=== PATIENT | male | born 1975 | race Caucasian/White ===

== ENCOUNTER 2017-01-08 12:32 | Emergency (ER) | payer OTHER ==
[~2017-01-08] VITALS: Ht 167.6 cm; Wt 106.3 kg
[2017-01-08 12:53] VITALS: TEMP 36.9; Ht 167.6 cm; Wt 106.3 kg
[2017-01-08] MEDS ORDERED: DOXY50CA26 PO (14:00)
[2017-01-08] MEDS ORDERED: FLUO0.0566 TOP (14:00)
[2017-01-08] MEDS ORDERED: HYDR-3419 PO (14:00)
[2017-01-08] MEDS ORDERED: HYDROCODONE/ACETAMOPHEN 5/325MG TAB PO STA (14:42)
[2017-01-08] MEDS ORDERED: ACETAMINOPHEN 325 MG TAB PO STA (14:42)
[2017-01-08] MEDS ORDERED: IBUPROFEN 200 MG TAB PO STA (14:42)
[2017-01-08] MEDS ORDERED: TRAMADOL HCL 50 MG TAB PO STA (14:42)
--- NOTE | 2017-01-08 14:53 | EMERGENCY ROOM VISIT NOTE ---
History Report prepared by Harshad: Makenna Dumont Under the Supervision of: Dr. Jose Vázquez M.D. First contact with patient: 13:51 Chief Complaint: BACK PAIN Stated Complaint: BACK AND HIP PAIN History of Present Illness The patient is a 41 year old male who presents to the Emergency Room with complaints of an episode of back pain starting 8 days ago. The patient states that he has chronic back pain from an accident 8 years ago. He states that the pain feels like past flare ups. He notes it is at the base and middle of his back. He states that it is shooting into his hip. The patient states that he sees a chiropractor, sees physical therapist, and takes Vicodin. He states that he took the Vicodin with no relief. He states that standing worsens his symptoms. The patient denies fevers, a history of cancer, incontinence, recent trauma, and urinary symptoms. Source of History: patient Onset: 8 days ago Position: back Quality: other (similar to previous flare ups) Timing: other (episode) Modifying Factors (Worsening): other (standing) Associated Symptoms: No fevers, No urinary symptoms Note: The patient complains of hip pain. The patient denies a history of cancer, incontinence, and recent trauma. Review of Systems See HPI for pertinent positives and negatives. A total of ten systems were reviewed and were otherwise negative. Past Medical & Surgical Medical Problems: (1) Chronic back pain Surgical Problems: (1) H/O wisdom tooth extraction Family History No pertinent family history Social History Smoking Status: Never Smoker Alcohol Use: none Drug Use: none Marital Status: Housing Status: lives with significant other Current/Historical Medications Scheduled Diazepam (Valium), 5 MG PO TID Doxycycline (Monohydrate) (Doxycycline), 1 CAP PO DAILY Fluocinonide (Fluocinonide), 1 APPLN TOP DAILY Scheduled PRN Hydrocodon/Acetaminophen 5MG/300MG (Vicodin (5MG/300MG)), 1 TAB PO Q4H PRN for Pain Tramadol (Ultram), 1 TAB PO BID PRN for Pain Allergies Coded Allergies: CI Pigment Blue 63 (Unverified Allergy, Intermediate, INCREASED HEART RATE , 01/08/17) Duloxetine (Unverified Allergy, Intermediate, INCREASED HEART RATE, 01/08/17 ) Ramipril (Unverified Allergy, Intermediate, INCREASED HEART RATE, 01/08/17) Physical Exam Vital Signs Date Time Temp Pulse Resp B/P (MAP) Pulse Ox O2 Delivery O2 Flow Rate FiO2 01/08/17 17:38 72 16 134/72 98 01/08/17 16:50 62 18 136/65 98 Room Air 01/08/17 15:50 58 20 137/72 98 Room Air 01/08/17 14:57 62 20 145/72 98 Room Air 01/08/17 12:53 36.9 66 20 98 Room Air Physical Exam GENERAL: Awake, alert, well-appearing, NAD HENT: Normocephalic, atraumatic. EYES: Normal conjunctiva. Sclera non-icteric. NECK: Supple. No nuchal rigidity. FROM. RESPIRATORY: CTAB, no rhonchi, wheezing, crackles CARDIAC: RRR, no MRG ABDOMEN: Soft, NTND, BS+ MSK: No chest wall TTP, no LE edema. Mild left sided SI joint ttp, tenderness with internal and external rotation of left leg and leg raise, Favre test positive, NV intact, SP/DP/TIB intact sensory and motor. NEURO: GCS 15, CN 2-12 intact, moves all 4s on command SKIN: No rash or jaundice noted. Medical Decision & Procedures ER Provider Diagnostic Interpretation: Radiology results as stated below per my review and radiologist interpretation: LUMBAR SPINE 2 OR 3 VIEWS HISTORY: 41 years-old Male prior L4/L5 frx w/ degenerative change COMPARISON: Pelvic radiographs of same day TECHNIQUE: 3 views of the lumbar spine FINDINGS: 5 nonrib lumbar-type vertebral segments are present. There is a probable phlebolith of the right hemipelvis. 3 mm radiodensity within the region of the inferior pole right kidney may reflect calculus or colonic debris. No acute fracture or dislocation. There is straightening of the normal lumbar lordosis. No significant degenerative changes. IMPRESSION: 1. No fracture or significant degenerative changes. 2. Straightening of the normal lumbar lordosis may be related to positioning or muscle spasm. 3. 3 mm radiodensity of the right upper abdomen may reflect renal calculus or colonic debris. The above report was generated using voice recognition software. It may contain grammatical, syntax or spelling errors. Electronically signed by: Jeff Pittman M.D. 01/08/2017 4:35 PM Dictated Date/Time: 01/08/2017 4:33 PM LEFT PELVIS/UNILATERAL HIP 2-3VIEWS CLINICAL HISTORY: prior frp trauma. Pain. COMPARISON: None. DISCUSSION: The bones and joint spaces appear intact. There is no evidence of fracture, dislocation or bony disease. There is no evidence for soft tissue swelling. IMPRESSION: Negative study. The above report was generated using voice recognition software. It may contain grammatical, syntax or spelling errors. Electronically signed by: Hebert Frazier M.D. 01/08/2017 4:31 PM Dictated Date/Time: 01/08/2017 4:30 PM Medications Administered Medications (Trade) Dose Ordered Sig/Anthony Route Start Time Stop Time Status Last Admin Dose Admin Acetaminophen/ Hydrocodone Bitart ([place] 5/325 Tab) 1 tab NOW STAT PO 01/08/17 14:42 01/08/17 14:44 DC 01/08/17 14:57 1 TAB Tramadol HCl (Ultram Tab) 50 mg NOW STAT PO 01/08/17 14:42 01/08/17 14:44 DC 01/08/17 14:56 50 MG Ibuprofen (Advil Tab) 400 mg NOW STAT PO 01/08/17 14:42 01/08/17 14:44 DC 01/08/17 14:55 400 MG Acetaminophen (Tylenol Tab) 650 mg NOW STAT PO 01/08/17 14:42 01/08/17 14:44 DC 01/08/17 14:57 650 MG ED Course 1423: The patient was evaluated in room B8. A complete history and physical exam was performed. 1442: Ordered Tylenol Tab 650 mg PO, Advil Tab 400 mg PO, Ultram Tab 50 mg PO, [place] 5/325 Tab 1 tab PO. 1520: I reevaluated the patient and his pain is better. 1649: I reevaluated the patient. Discussed results and discharge instructions: He verbalized understanding and agreement. The patient is ready for discharge. Medical Decision The patient is a 41 year old male who presents to the Emergency Room with complaints of an episode of back pain starting 8 days ago. The patient has a history of chronic back pain. Differential diagnoses include SI pain, arthritis, degenerative joint disease, sciatica. Given the patient's signs and symptoms most likely related to chronic degenerative disease from his prior accident. Patient had no high risk signs which included no IV drug abuse, steroid use, immunosuppression, fevers, chills , weight loss, bowel or bladder incontinence, lower extremity numbness or tingling, or saddle anesthesia. Patient was given medications which she said mildly improved his pain. Patient had films of his lumbar spine as well as his pelvis which didn't show any acute changes that would require any sort of medical or surgical management. Patient was informed of the findings was given additional medications to help pain. Patient was also informed to not take the Valium with his Percocets. Patient was told to take his medications as prescribed. Patient was told to take too much Motrin and on for more than 2 consecutive days and this can cause stomach and/or kidney problems. Patient agree with plan of care was to follow-up with his physical therapist as well as chiropractor tomorrow. Patient was also in the next week. Patient was in [place], discharge, return precautions. Patient agreed with plan of care and was discharged home. Impression Primary Impression: Chronic back pain Additional Impression: Sacroiliac joint pain Scribe Attestation The scribe's documentation has been prepared under my direction and personally reviewed by me in its entirety. I confirm that the note above accurately reflects all work, treatment, procedures, and medical decision making performed by me. Departure Information Dispostion Home / Self-Care Prescriptions Diazepam (VALIUM) 5 Mg Tab 5 MG PO TID for Pain, #14 TAB Prov: Jose Vázquez M.D. 01/08/17 Tramadol (Ultram) 50 Mg Tab 1 TAB PO BID Y for Pain for 30 Days, #60 TAB Prov: Jose Vázquez M.D. 01/08/17 Referrals No Doctor, Assigned (PCP) [facility] Forms HOME CARE DOCUMENTATION FORM, IMPORTANT VISIT INFORMATION Patient Instructions Back Pain - [facility], [facility] Additional Instructions Please keep her follow-up appointments as scheduled. Please return to the emergency department if you worsening or recurrent symptoms not amenable to treatment. Furthermore, please return to the ER if you have any bowel or bladder incontinence or if you are unable to feel perineal or genital area. Immediate take Motrin 800 mg every 6 hours as needed for pain for no more than 2 days. He may take with food. He may take Tylenol 1000 mg every 6 hours as needed for pain. Please do not take more than 4000 mg in any given day. You have been prescribed Valium as a muscle relaxant. As we discussed earlier please do not take the Valium as well as her already prescribed Percocet. This can cause sedation which may cause further problems. Work Instructions Return To Work: 1 day Problem Qualifiers
--- NOTE | 2017-01-08 16:32 | DIAGNOSTIC IMAGING REPORT ---
LEFT PELVIS/UNILATERAL HIP 2-3VIEWS CLINICAL HISTORY: prior frp trauma. Pain. COMPARISON: None. DISCUSSION: The bones and joint spaces appear intact. There is no evidence of fracture, dislocation or bony disease. There is no evidence for soft tissue swelling. IMPRESSION: Negative study. The above report was generated using voice recognition software. It may contain grammatical, syntax or spelling errors. Electronically signed by: Hebert Frazier M.D. 01/08/2017 4:31 PM Dictated Date/Time: 01/08/2017 4:30 PM
--- NOTE | 2017-01-08 16:37 | DIAGNOSTIC IMAGING REPORT ---
LUMBAR SPINE 2 OR 3 VIEWS HISTORY: 41 years-old Male prior L4/L5 frx w/ degenerative change COMPARISON: Pelvic radiographs of same day TECHNIQUE: 3 views of the lumbar spine FINDINGS: 5 nonrib lumbar-type vertebral segments are present. There is a probable phlebolith of the right hemipelvis. 3 mm radiodensity within the region of the inferior pole right kidney may reflect calculus or colonic debris. No acute fracture or dislocation. There is straightening of the normal lumbar lordosis. No significant degenerative changes. IMPRESSION: 1. No fracture or significant degenerative changes. 2. Straightening of the normal lumbar lordosis may be related to positioning or muscle spasm. 3. 3 mm radiodensity of the right upper abdomen may reflect renal calculus or colonic debris. The above report was generated using voice recognition software. It may contain grammatical, syntax or spelling errors. Electronically signed by: Jeff Pittman M.D. 01/08/2017 4:35 PM Dictated Date/Time: 01/08/2017 4:33 PM
[2017-01-08] MEDS ORDERED: TRAM-10 PO (17:20)
[2017-01-08] MEDS ORDERED: DIAZ5TAB3 PO (17:20)
[2017-01-08 17:38] VITALS: BP 134/72; PULSE 72; O2SAT 98
== END 2017-01-08 17:38 | disposition home or self-care (01) ==
LOC: C.EDB 12:33
DX: M54.9 Dorsalgia, unspecified (principal); M53.3 Sacrococcygeal disorders, not elsewhere classified